=== PATIENT | female | born 1965 | race Caucasian/White ===

== ENCOUNTER 2017-11-13 18:10 | Emergency (ER) | payer OTHER ==
[2017-11-13] MEDS: DICYCLOMINE 20 MG/2 ML AMPUL. IM ONE (19:38)
[2017-11-13] MEDS: IV NORMAL SALINE 1,000ML 1,000 ML IV SCH (19:38)
[2017-11-13 19:58] LABS: BASO % 1 % (0-3); EOS # 0.1 x10^3/uL (0.0-0.7); EOS % 2 % (0-3); HEMOGLOBIN 13.3 g/dL (12.0-15.5); LYMPH # 0.9 x10^3/uL (1.0-4.8); LYMPH % 20 % (24-48); MEAN CORPUSCULAR HEMOGLOBIN 34 pg (25-35); MEAN CORPUSCULAR HGB CONC 34 g/dL (31-37); MEAN CORPUSCULAR VOLUME 99 fL (79-100); MONO # 0.4 x10^3/uL (0.0-1.1); MONO % 10 % (0-9); NEUT # 2.9 x10^3uL (1.8-7.7); NEUT % 67 % (31-73); PLATELET COUNT 205 x10^3/uL (140-400); RED BLOOD COUNT 3.94 x10^6/uL (3.50-5.40); RED CELL DISTRIBUTION WIDTH 13.2 % (11.5-14.5); WHITE BLOOD COUNT 4.3 x10^3/uL (4.0-11.0)
[2017-11-13 20:12] LABS: ALBUMIN 4.4 g/dL (3.4-5.0); ALBUMIN/GLOBULIN RATIO 1.3 (1.0-1.7); CALCIUM 9.3 mg/dL (8.5-10.1); CREATININE 0.7 mg/dL (0.6-1.0); GFR 88.6; POTASSIUM 4.1 mmol/L (3.5-5.1); TOTAL BILIRUBIN 0.4 mg/dL (0.2-1.0); TOTAL PROTEIN 7.8 g/dL (6.4-8.2)
--- NOTE | 2017-11-13 20:13 | PHYS DOC ---
Past History Past Medical History: Arthritis Past Surgical History: Tonsillectomy Alcohol Use: Rarely Drug Use: None Adult General Chief Complaint Chief Complaint: ABDOMINAL PAIN HPI HPI Patient is a 52 year old female who presents with complaint of abdominal pain. The patient states her symptoms have been present over the past 24 hours. The patient states that she is having generalized abdominal pain and intermittent cramping. Patient states that her symptoms have been worsening throughout the day today. The patient states that she has not had a bowel movement or been able to pass gas over the past 24 hours. The patient states that she is not on any pain medications at home and denies any history of constipation. Patient currently on Zoloft but takes no other medications and does not currently follow regularly with a doctor. Patient has not had any nausea or vomiting and denies fevers. Review of Systems Review of Systems Constitutional: Denies fever or chills [] Eyes: Denies change in visual acuity, redness, or eye pain [] HENT: Denies nasal congestion or sore throat [] Respiratory: Denies cough or shortness of breath [] Cardiovascular: Denies chest pain or edema[] GI: Abdominal pain, denies nausea, vomiting, bloody stools or diarrhea [] : Denies dysuria or hematuria [] Musculoskeletal: Denies back pain or joint pain [] Integument: Denies rash or skin lesions [] Neurologic: Denies headache, focal weakness or sensory changes [] All other systems were reviewed and found to be within normal limits, except as documented in this note. Current Medications Current Medications Current Medications Medications (Trade) Dose Ordered Sig/Keiko Start Time Stop Time Status Last Admin Dose Admin Dicyclomine HCl (Bentyl) 10 mg 1X ONCE 11/13/17 19:30 11/13/17 19:31 DC 11/13/17 19:38 10 MG Iohexol (Omnipaque 300 Mg/ml) 75 ml 1X ONCE 11/13/17 20:15 11/13/17 20:16 Sodium Chloride 1,000 ml @ 1,000 mls/hr Q1H 11/13/17 19:06 11/13/17 20:05 DC 11/13/17 19:38 1,000 MLS/HR Allergies Allergies Allergies Coded Allergies Type Severity Reaction Last Updated Verified morphine Allergy Mild HIVES 11/13/17 Yes Physical Exam Physical Exam Constitutional: Alert, afebrile, appears in mild discomfort. [] HENT: Normocephalic, atraumatic, bilateral external ears normal, oropharynx moist, no oral exudates, nose normal. [] Eyes: PERRLA, EOMI, conjunctiva normal, no discharge. [] Neck: Normal range of motion, no tenderness, supple, no stridor. [] Cardiovascular:Heart rate regular rhythm, no murmur [] Lungs & Thorax: Bilateral breath sounds clear to auscultation [] Abdomen: Bowel sounds normal, mild distention in the upper abdomen, generalized tenderness palpation with no guarding or rebound tenderness, no masses, no pulsatile masses. [] Skin: Warm, dry, no erythema, no rash. [] Back: No tenderness, no CVA tenderness. [] Extremities: No tenderness, no cyanosis, no clubbing, ROM intact, no edema. [] Neurologic: Alert and oriented X 3, normal motor function, normal sensory function, no focal deficits noted. [] Current Patient Data Vital Signs Vital Signs Date Time Temp Pulse Resp B/P (MAP) Pulse Ox O2 Delivery O2 Flow Rate FiO2 11/13/17 18:10 98.7 69 18 98 Room Air Lab Results Laboratory Tests Test 11/13/17 19:35 White Blood Count 4.3 x10^3/uL (4.0-11.0) Red Blood Count 3.94 x10^6/uL (3.50-5.40) Hemoglobin 13.3 g/dL (12.0-15.5) Hematocrit 39.0 % (36.0-47.0) Mean Corpuscular Volume 99 fL (79-100) Mean Corpuscular Hemoglobin 34 pg (25-35) Mean Corpuscular Hemoglobin Concent 34 g/dL (31-37) Red Cell Distribution Width 13.2 % (11.5-14.5) Platelet Count 205 x10^3/uL (140-400) Neutrophils (%) (Auto) 67 % (31-73) Lymphocytes (%) (Auto) 20 % (24-48) L Monocytes (%) (Auto) 10 % (0-9) H Eosinophils (%) (Auto) 2 % (0-3) Basophils (%) (Auto) 1 % (0-3) Neutrophils # (Auto) 2.9 x10^3uL (1.8-7.7) Lymphocytes # (Auto) 0.9 x10^3/uL (1.0-4.8) L Monocytes # (Auto) 0.4 x10^3/uL (0.0-1.1) Eosinophils # (Auto) 0.1 x10^3/uL (0.0-0.7) Basophils # (Auto) 0.0 x10^3/uL (0.0-0.2) EKG EKG Not performed[] Radiology/Procedures Radiology/Procedures 3 view acute abdominal series interpreted by me: Colonic distention in left upper quadrant with coffee been appearance and paucity of air in the left lower quadrant, appearance concerning for possible [place] [address] IMAGING REPORT Signed PATIENT: GALE OSORIO ACCOUNT: [id number] : 1965 LOCATION: ER AGE: 52 SEX: F EXAM STATUS: REG ER ORD. PHYSICIAN: HERRERA MARTI MD REASON: Colonic distention and pain, rule out volvulus PROCEDURE: CT ABD PELV W/ IV CONTRST ONLY CT abdomen and pelvis with contrast History: Colonic distention, pain, bloating starting this a.m. Technique: After the administration of intravenous contrast, CT imaging was performed of the abdomen and pelvis. No oral contrast was given as per request. Multiplanar images are reviewed. Exposure: One or more of the following individualized dose reduction techniques were utilized for this examination: 1. Automated exposure control 2. Adjustment of the mA and/or kV according to patient size 3. Use of iterative reconstruction technique. Comparison: None other than abdomen radiographs the same day Findings: Corresponding with the radiographic findings, ascending and colon and cecum is apparently rotated into the left upper quadrant of the abdomen with associated air-fluid level, rotational/twisted appearance of the right mesenteric vessels and bowel. Cecum is somewhat distended about 5.8 cm in caliber. There is retained stool in the remainder of the colon. There is no free air. Stomach is more displaced posteriorly. There is no abnormality of the visualized lung bases. No focal abnormality is identified of the liver, spleen, pancreas. There is no adrenal nodularity. Both kidneys enhance, no hydronephrosis. Gallbladder is present without obvious intraluminal abnormality by CT. There is mild free fluid in the pelvis greater on the right, also area of relative hypodensity of the right pelvis in the adnexal region probably due to underlying cyst although hydrosalpinx a possibility as also focus of somewhat tubular morphology. Round focus of density in this region measures about 2.8 cm. There is also probable partially collapsed left adnexal cyst about 1.5 cm. There is also larger area of relative hyperdensity or enhancement associated with the fundus of the retroverted uterus concerning for underlying uterine mass on the order of about 5.2 cm in size. There is likely minimal fluid in the endometrial cavity. There is mild distention of the urinary bladder, nonspecific mild wall thickening more anteriorly. There is advanced degenerative disc disease L5-S1. Impression: 1. Ascending colon and cecum is abnormally located in the left upper quadrant of the abdomen with a rotational/twisted appearance of the right mesentery, evidence of volvulus involving the cecum and ascending colon, possible component of internal hernia. There is no free air. 2. There is retained stool in the remainder of the colon. 3. There is likely right adnexal cyst although possible right hydrosalpinx, also partially collapsed small left adnexal cyst. There is minimal free fluid in the pelvis. Electronically signed by: Nona Galloway MD (11/13/2017 8:50 PM) [facility] DICTATED AND SIGNED BY: NONA GALLOWAY MD DATE: 11/13/172037 CC: HERRERA MARTI MD; PCP,UNKNOWN ~ [] Course & Med Decision Making Course & Med Decision Making Pertinent Labs and Imaging studies reviewed. (See chart for details) CT imaging confirms presence of cecal volvulus. I contacted Dr. Ruano, general surgeon at [facility]. He recommended that the patient be transferred as patient will need surgical intervention for treatment of her condition. I spoke with Dr. Godoy, hospitalist, at [facility] who accepted care of patient for transfer. Spoke with patient regarding plan of care and she is in agreement at time of disposition. Dragon Disclaimer Dragon Disclaimer This electronic medical record was generated, in whole or in part, using a voice recognition dictation system. Departure Departure: Impression: Primary Impression: Cecal volvulus Disposition: 02 XFER SHT-TRM HOSP Condition: STABLE Referrals: PCP,UNKNOWN (PCP) HERRERA MARTI MD Nov 13, 2017 20:12
[2017-11-13] MEDS: IOHEXOL 300 MG/ML 75 ML VIAL. IV ONE (20:24)
[2017-11-13 20:52] LABS: BILIRUBIN,URINE NEG (NEG); CLARITY,URINE CLOUDY; COLOR,URINE YELLOW; GLUCOSE,URINE NEG (NEG); NITRITE,URINE NEG (NEG); RBC,URINE OCC /HPF (0-2); UROBILINOGEN,URINE 0.2 mg/dL (0.2 mg/dL)
[2017-11-13 20:53] LABS: BACTERIA,URINE MOD /HPF (0-FEW); SQUAMOUS EPITHELIAL CELL,UR MANY /LPF
--- NOTE | 2017-11-13 20:54 | RAD ---
CT abdomen and pelvis with contrast History: Colonic distention, pain, bloating starting this a.m. Technique: After the administration of intravenous contrast, CT imaging was performed of the abdomen and pelvis. No oral contrast was given as per request. Multiplanar images are reviewed. Exposure: One or more of the following individualized dose reduction techniques were utilized for this examination: 1. Automated exposure control 2. Adjustment of the mA and/or kV according to patient size 3. Use of iterative reconstruction technique. Comparison: None other than abdomen radiographs the same day Findings: Corresponding with the radiographic findings, ascending and colon and cecum is apparently rotated into the left upper quadrant of the abdomen with associated air-fluid level, rotational/twisted appearance of the right mesenteric vessels and bowel. Cecum is somewhat distended about 5.8 cm in caliber. There is retained stool in the remainder of the colon. There is no free air. Stomach is more displaced posteriorly. There is no abnormality of the visualized lung bases. No focal abnormality is identified of the liver, spleen, pancreas. There is no adrenal nodularity. Both kidneys enhance, no hydronephrosis. Gallbladder is present without obvious intraluminal abnormality by CT. There is mild free fluid in the pelvis greater on the right, also area of relative hypodensity of the right pelvis in the adnexal region probably due to underlying cyst although hydrosalpinx a possibility as also focus of somewhat tubular morphology. Round focus of density in this region measures about 2.8 cm. There is also probable partially collapsed left adnexal cyst about 1.5 cm. There is also larger area of relative hyperdensity or enhancement associated with the fundus of the retroverted uterus concerning for underlying uterine mass on the order of about 5.2 cm in size. There is likely minimal fluid in the endometrial cavity. There is mild distention of the urinary bladder, nonspecific mild wall thickening more anteriorly. There is advanced degenerative disc disease L5-S1. Impression: 1. Ascending colon and cecum is abnormally located in the left upper quadrant of the abdomen with a rotational/twisted appearance of the right mesentery, evidence of volvulus involving the cecum and ascending colon, possible component of internal hernia. There is no free air. 2. There is retained stool in the remainder of the colon. 3. There is likely right adnexal cyst although possible right hydrosalpinx, also partially collapsed small left adnexal cyst. There is minimal free fluid in the pelvis. Electronically signed by: Ousmane Marinelli MD (11/13/2017 8:50 PM) [facility]
[2017-11-13 23:26] VITALS: BP 121/72
--- NOTE | 2017-11-14 07:54 | RAD ---
Examination: Acute abdomen series HISTORY: History of abdominal pain, bloating COMPARISON: None available FINDINGS: The cardiomediastinal silhouette grossly appears unremarkable. There is no acute infiltrate or visualized pneumothorax. No evidence of free air noted under the hemidiaphragm. Feces and gas noted in the colon. Distended bowel loop identified in the left upper quadrant of the abdomen. IMPRESSION: 1. Distended bowel loops identified in the left upper quadrant abdomen likely distended and dilated cecum and volvulus is not completely excluded. Electronically signed by: Abdirizak Lynch MD (11/14/2017 7:50 AM) [facility]
== END 2017-11-13 23:42 | disposition short-term general hospital (02) ==
LOC: ER 18:10
DX: K56.2 Volvulus (principal); M19.90 Unspecified osteoarthritis, unspecified site; Z88.5 Allergy status to narcotic agent
CPT/HCPCS: 36415; 74022; 74177; 80053; 81001; 83690; 85025; 87086; 96372; 99285; J0500; Q9967; J7030